=== PATIENT | female | born 1990 | race Caucasian/White ===

== ENCOUNTER 2017-04-18 20:21 | Inpatient (IN) | payer BC ==
[2017-04-18] MEDS ORDERED: LACTATED RINGER'S 1,000 ML IV (21:27)
[2017-04-18] MEDS ORDERED: METHYLERGONOVINE 0.2 MG INJ IM (21:30)
[2017-04-18] MEDS ORDERED: OXYTOCIN 30 UNITS/LR 500 ML IV ×2 (21:30)
[2017-04-18] MEDS ORDERED: BUTORPHANOL 2 MG INJ IV (21:30)
[2017-04-18] MEDS ORDERED: LIDOCAINE 1% (MPF) 30 ML INJ INJ (21:30)
[2017-04-18] MEDS ORDERED: CARBOPROST 250 MCG INJ IM (21:30)
[2017-04-18] MEDS ORDERED: MISOPROSTOL 200 MCG TAB PR (21:30)
[2017-04-18] MEDS ORDERED: MINERAL OIL LIGHT 10 ML VIAL TOP (21:30)
[2017-04-18] MEDS ORDERED: IBUPROFEN 600 MG TAB PO (21:30)
[2017-04-18 21:58] LABS: ADD MAN DIFF? NO
[2017-04-18] MEDS: AMPICILLIN 2 GM/NS (PMX) 100 ML IV (21:58)
[2017-04-18] MEDS: LACTATED RINGER'S 1,000 ML IV (21:58)
[2017-04-18 22:00] LABS: BASOPHILS % 0.3 % (0.0-2.0); EOSINOPHILS # 0.1 10^3/ul (0.0-0.5); EOSINOPHILS % 0.8 % (0.0-7.0); HEMATOCRIT 33.6 % (37.0-47.0); HEMOGLOBIN 11.1 g/dl (12.0-16.0); LYMPHOCYTES # 1.7 10^3/ul (0.8-2.9); LYMPHOCYTES % 16.1 % (15.0-51.0); MEAN CORPUSCULAR HEMOGLOBIN 29.6 pg (29.0-33.0); MEAN CORPUSCULAR VOLUME 89.6 fl (82.0-101.0); MEAN PLATELET VOLUME 12.4 fl (7.4-10.4); MONOCYTE # 0.8 10^3/ul (0.3-0.9); MONOCYTES % 7.1 % (0.0-11.0); NEUTROPHIL # 8.1 10^3/ul (1.6-7.5); NEUTROPHILS % 74.4 % (39.0-77.0); PLATELET COUNT 271 10^3/UL (140-415); RED BLOOD COUNT 3.75 10^6/ul (4.20-5.40); RED CELL DISTRIBUTION WIDTH 14.4 % (11.5-14.5)
[2017-04-18 22:00] LABS: WHITE BLOOD COUNT 10.8 10^3/ul (4.8-10.8)
[2017-04-18 22:28] LABS: INR 0.95; PROTIME 12.8 Sec (11.9-14.9)
[2017-04-18 22:29] LABS: PARTIAL THROMBOPLASTIN TIME 27.1 Sec (25.0-35.0)
[2017-04-18] MEDS: OXYTOCIN 30 UNITS/LR 500 ML IV (22:29)
[2017-04-18 22:51] LABS: HEPATITIS B SURFACE ANTIGEN NEGATIVE (NEGATIVE)
[2017-04-19] MEDS: AMPICILLIN 1 GM/NS (PMX) 50 ML IV ×6 (02:07→21:35)
[2017-04-19] MEDS: LACTATED RINGER'S 1,000 ML IV ×2 (06:10→15:27)
[2017-04-19 22:31] LABS: RAPID PLASMA REAGIN NONREACTIVE (NR)
[2017-04-19] MEDS: OXYTOCIN 30 UNITS/LR 500 ML IV (23:20)
[2017-04-19] MEDS ORDERED: LACTATED RINGER'S 1,000 ML IV* (23:51)
[2017-04-20] MEDS ORDERED: METHYLERGONOVINE 0.2 MG INJ IM
[2017-04-20] MEDS ORDERED: MISOPROSTOL 200 MCG TAB PR
[2017-04-20] MEDS ORDERED: OXYCODONE/ASPIRIN (4.88/325) TAB PO
[2017-04-20] MEDS ORDERED: WITCH HAZEL/GLYCERIN PAD PR
[2017-04-20] MEDS ORDERED: CARBOPROST 250 MCG INJ IM
[2017-04-20] MEDS ORDERED: OXYTOCIN 30 UNITS/LR 500 ML IV
[2017-04-20] MEDS ORDERED: BENZOCAINE 20% 56 ML SPRAY TOP
[2017-04-20] MEDS: OXYTOCIN 30 UNITS/LR 500 ML IV (01:06)
[2017-04-20] MEDS: IBUPROFEN 600 MG TAB PO ×5 (01:42→23:44)
[2017-04-20 15:00] LABS: ADD MAN DIFF? NO
[2017-04-20 15:05] LABS: WHITE BLOOD COUNT 16.6 10^3/ul (4.8-10.8)
[2017-04-20 15:05] LABS: BASOPHILS % 0.2 % (0.0-2.0); EOSINOPHILS % 0.2 % (0.0-7.0); HEMATOCRIT 26.7 % (37.0-47.0); HEMOGLOBIN 9.1 g/dl (12.0-16.0); LYMPHOCYTES # 1.2 10^3/ul (0.8-2.9); LYMPHOCYTES % 7.4 % (15.0-51.0); MEAN CORPUSCULAR HEMOGLOBIN 30.4 pg (29.0-33.0); MEAN CORPUSCULAR HGB CONC 34.1 g/dl (32.0-37.0); MEAN CORPUSCULAR VOLUME 89.3 fl (82.0-101.0); MEAN PLATELET VOLUME 12.3 fl (7.4-10.4); MONOCYTE # 1.1 10^3/ul (0.3-0.9); MONOCYTES % 6.6 % (0.0-11.0); NEUTROPHILS % 84.3 % (39.0-77.0); PLATELET COUNT 230 10^3/UL (140-415); RED BLOOD COUNT 2.99 10^6/ul (4.20-5.40); RED CELL DISTRIBUTION WIDTH 14.6 % (11.5-14.5)
[2017-04-20] MEDS: LANOLIN 7 GM TUBE TOP (23:44)
[2017-04-21] MEDS: IBUPROFEN 600 MG TAB PO ×3 (05:52→17:25)
[2017-04-21] MEDS: DIPHTH/TET/ACEL PERTUSS (ADULT) 0.5 ML VIAL IM* (07:25)
[2017-04-21 09:03] LABS: ADD MAN DIFF? NO
[2017-04-21 09:07] LABS: BASOPHILS % 0.4 % (0.0-2.0); EOSINOPHILS # 0.2 10^3/ul (0.0-0.5); EOSINOPHILS % 1.4 % (0.0-7.0); HEMATOCRIT 25.9 % (37.0-47.0); HEMOGLOBIN 8.5 g/dl (12.0-16.0); LYMPHOCYTES # 1.9 10^3/ul (0.8-2.9); LYMPHOCYTES % 17.2 % (15.0-51.0); MEAN CORPUSCULAR HEMOGLOBIN 30.2 pg (29.0-33.0); MEAN CORPUSCULAR HGB CONC 32.8 g/dl (32.0-37.0); MEAN CORPUSCULAR VOLUME 92.2 fl (82.0-101.0); MEAN PLATELET VOLUME 12.3 fl (7.4-10.4); MONOCYTE # 0.8 10^3/ul (0.3-0.9); MONOCYTES % 7.6 % (0.0-11.0); NEUTROPHIL # 7.7 10^3/ul (1.6-7.5); NEUTROPHILS % 71.2 % (39.0-77.0); PLATELET COUNT 195 10^3/UL (140-415); RED BLOOD COUNT 2.81 10^6/ul (4.20-5.40); RED CELL DISTRIBUTION WIDTH 14.9 % (11.5-14.5)
[2017-04-21 09:07] LABS: WHITE BLOOD COUNT 10.8 10^3/ul (4.8-10.8)
[2017-04-21] MEDS: LANOLIN 7 GM TUBE TOP (09:19)
[2017-04-21] MEDS: INFLUENZA VIRUS VACCINE 0.5 ML (DISPENSING) IM* (11:36)
== END 2017-04-21 18:08 | disposition home or self-care (01) | DRG 775 ==
LOC: L-D 20:21 → PP1 04-20 01:28
PROVIDERS: Obstetrics & Gynecology
PROC: 3E033VJ Introduction of Other Hormone into Peripheral Vein, Percutaneous Approach (ICD-10-PCS; 2017-04-18)
PROC: 10E0XZZ Delivery of Products of Conception, External Approach (ICD-10-PCS; principal; 2017-04-19)
PROC: 0KQM0ZZ Repair Perineum Muscle, Open Approach (ICD-10-PCS; 2017-04-19)
DX: O70.1 Second degree perineal laceration during delivery (principal); Z37.0 Single live birth; Z3A.40 40 weeks gestation of pregnancy
CPT/HCPCS: 85025; 85610; 85730; 86592; 86850; 86900; 86901; 87340

== ENCOUNTER 2017-07-02 21:58 | Emergency (ER) | payer SELFPAY, BC ==
[2017-07-03] MEDS: LIDOCAINE/MYLANTA 40 ML BTL PO (01:59)
[2017-07-03] MEDS: ONDANSETRON (ODT) 4 MG TAB ODT (01:59)
[2017-07-03] MEDS: MECLIZINE 12.5 MG TAB PO (01:59)
[2017-07-03 02:44] LABS: ADD MAN DIFF? NO
[2017-07-03 02:50] LABS: WHITE BLOOD COUNT 10.7 10^3/ul (4.8-10.8)
[2017-07-03 02:51] LABS: BASOPHIL # 0.1 10^3/ul (0.0-0.1); BASOPHILS % 0.6 % (0.0-2.0); EOSINOPHILS # 0.1 10^3/ul (0.0-0.5); EOSINOPHILS % 1.2 % (0.0-7.0); HEMATOCRIT 38.3 % (37.0-47.0); HEMOGLOBIN 12.6 g/dl (12.0-16.0); LYMPHOCYTES # 2.9 10^3/ul (0.8-2.9); LYMPHOCYTES % 27.2 % (15.0-51.0); MEAN CORPUSCULAR HEMOGLOBIN 29.1 pg (29.0-33.0); MEAN CORPUSCULAR HGB CONC 32.9 g/dl (32.0-37.0); MEAN CORPUSCULAR VOLUME 88.5 fl (82.0-101.0); MEAN PLATELET VOLUME 11.8 fl (7.4-10.4); MONOCYTE # 0.9 10^3/ul (0.3-0.9); MONOCYTES % 8.1 % (0.0-11.0); NEUTROPHIL # 6.7 10^3/ul (1.6-7.5); NEUTROPHILS % 62.4 % (39.0-77.0); PLATELET COUNT 428 10^3/UL (140-415); RED BLOOD COUNT 4.33 10^6/ul (4.20-5.40); RED CELL DISTRIBUTION WIDTH 13.1 % (11.5-14.5)
[2017-07-03 03:11] LABS: ADD UMIC YES; UR ASCORBIC ACID NEGATIVE (NEGATIVE); UR BACTERIA FEW /HPF (NONE SEEN); UR BILIRUBIN (Dip) NEGATIVE (NEGATIVE); UR BLOOD (Dip) NEGATIVE (NEGATIVE); UR BUDDING YEAST FEW /HPF (NONE SEEN); UR CLARITY CLOUDY (CLEAR); UR COLOR YELLOW (YELLOW); UR GLUCOSE (Dip) NEGATIVE (NEGATIVE); UR KETONES (Dip) NEGATIVE (NEGATIVE); UR LEUKOCYTE ESTERASE (Dip) 3+ Leu/ul (NEGATIVE); UR MUCUS FEW /HPF (NONE SEEN); UR NITRITE (Dip) NEGATIVE (NEGATIVE); UR RBC 15 /HPF (0-5); UR SPECIFIC GRAVITY (Dip) 1.025 (1.003-1.030); UR SQUAMOUS EPITHELIAL CELL MANY /HPF (FEW); UR TOTAL PROTEIN (Dip) 1+ mg/dl (NEGATIVE); UR UROBILINOGEN (Dip) NEGATIVE (NEGATIVE); UR WBC 54 /HPF (0-5)
[2017-07-03 03:16] LABS: ALANINE AMINOTRANSFERASE 33 IU/L (13-69); ALBUMIN 4.6 g/dl (3.3-4.9); ALBUMIN/GLOBULIN RATIO 1.15; ALKALINE PHOSPHATASE 142 IU/L (42-121); AMYLASE 76 U/L (11-123); ANION GAP 20 (8-16); ASPARTATE AMINO TRANSFERASE 29 IU/L (15-46); BILIRUBIN,INDIRECT 0.1 mg/dl (0-1.1); BILIRUBIN,TOTAL 0.1 mg/dl (0.2-1.3); BLOOD UREA NITROGEN 25 mg/dl (7-20); CALCIUM 9.3 mg/dl (8.4-10.2); CARBON DIOXIDE 22 mmol/L (21-31); CHLORIDE 105 mmol/L (97-110); CREATININE 0.71 mg/dl (0.44-1.00); GLUCOSE 92 mg/dl (70-220); LIPASE 65 U/L (23-300); POTASSIUM 4.1 mmol/L (3.5-5.1); SODIUM 143 mmol/L (135-144); TOTAL PROTEIN 8.6 g/dl (6.1-8.1)
[2017-07-03] MEDS: CEFTRIAXONE 1 GM INJ IM (05:38)
== END 2017-07-03 06:13 | disposition home or self-care (01) ==
LOC: FTE 21:58
DX: N12 Tubulo-interstitial nephritis, not specified as acute or chronic (principal); N39.0 Urinary tract infection, site not specified
CPT/HCPCS: 36415; 76705; 80053; 81001; 82150; 83690; 84703; 85025; 87086; 96372; 99285-25

== ENCOUNTER 2018-06-27 01:48 | Emergency (ER) | payer MEDICAID, OTHER ==
[2018-06-27] MEDS: IBUPROFEN 600 MG TAB PO (05:13)
== END 2018-06-27 05:35 | disposition home or self-care (01) ==
LOC: FTE 01:48
DX: R51 Headache (principal); M62.838 Other muscle spasm
CPT/HCPCS: 99282; Z7502

== ENCOUNTER 2018-10-15 11:16 | Emergency (ER) | payer SELFPAY, MEDICAID ==
[2018-10-15 13:28] LABS: ADD MAN DIFF? NO
[2018-10-15 13:31] LABS: BASOPHIL # 0.1 10^3/ul (0.0-0.1); BASOPHILS % 0.4 % (0.0-2.0); EOSINOPHILS # 0.1 10^3/ul (0.0-0.5); EOSINOPHILS % 0.4 % (0.0-7.0); HEMATOCRIT 42.5 % (37.0-47.0); HEMOGLOBIN 14.1 g/dl (12.0-16.0); LYMPHOCYTES # 1.4 10^3/ul (0.8-2.9); LYMPHOCYTES % 11.3 % (15.0-51.0); MEAN CORPUSCULAR HGB CONC 33.2 g/dl (32.0-37.0); MEAN CORPUSCULAR VOLUME 90.4 fl (82.0-101.0); MEAN PLATELET VOLUME 11.5 fl (7.4-10.4); MONOCYTE # 0.7 10^3/ul (0.3-0.9); MONOCYTES % 5.8 % (0.0-11.0); NEUTROPHIL # 10.1 10^3/ul (1.6-7.5); NEUTROPHILS % 81.7 % (39.0-77.0); PLATELET COUNT 370 10^3/UL (140-415); RED CELL DISTRIBUTION WIDTH 12.4 % (11.5-14.5)
[2018-10-15 13:31] LABS: WHITE BLOOD COUNT 12.3 10^3/ul (4.8-10.8)
[2018-10-15 13:53] LABS: ALANINE AMINOTRANSFERASE 32 IU/L (13-69); ALBUMIN 4.2 g/dl (3.3-4.9); ALBUMIN/GLOBULIN RATIO 1.27; ALKALINE PHOSPHATASE 105 IU/L (42-121); ANION GAP 10 (5-13); ASPARTATE AMINO TRANSFERASE 25 IU/L (15-46); BILIRUBIN,INDIRECT 0.3 mg/dl (0-1.1); BILIRUBIN,TOTAL 0.3 mg/dl (0.2-1.3); BLOOD UREA NITROGEN 14 mg/dl (7-20); CARBON DIOXIDE 26 mmol/L (21-31); CHLORIDE 103 mmol/L (97-110); CREATININE 0.62 mg/dl (0.44-1.00); Estimated GFR > 60 mL/min (>60); GLUCOSE 110 mg/dl (70-220); POTASSIUM 4.4 mmol/L (3.5-5.1); SODIUM 139 mmol/L (135-144); TOTAL PROTEIN 7.5 g/dl (6.1-8.1)
== END 2018-10-15 15:36 | disposition home or self-care (01) ==
LOC: FTE 11:16
DX: F41.9 Anxiety disorder, unspecified (principal)
CPT/HCPCS: 80053; 82962; 85025; 93005; 99284-25